=== PATIENT | female | born 1995 | race Caucasian/White ===

== ENCOUNTER 2020-08-30 16:42 | Emergency (ER) | payer BC ==
--- NOTE | 2020-08-30 19:29 | ED Physician Documentation ---
History of Present Illness - Stated complaint Stated Complaint: COVID EXPOSURE - Chief complaint Chief Complaint: General - Additonal information Additional information: 24-year-old female presents for COVID-19 screening. She reports that she lives alone with her mother. Unfortunately her mother has been in close contact with COVID-19 positive individuals from the [facility]. Patient denies cough cold congestion fever sore throat, runny nose or loss of taste or smell Review of Systems Constitutional: reports: Reviewed and negative Eyes: reports: Reviewed and negative Ears: reports: Reviewed and negative Nose: reports: Reviewed and negative Cardiac: reports: Reviewed and negative GI: reports: Reviewed and negative : reports: Reviewed and negative Skin: reports: Reviewed and negative Musculoskeletal: reports: Reviewed and negative Neurologic: reports: Reviewed and negative Psychiatric: reports: Reviewed and negative PD PAST MEDICAL HISTORY - Past Medical History Past Medical History: Yes Respiratory: None Endocrine/Autoimmune: None HEENT: None Psych: Anxiety Musculoskeletal: None - Past Surgical History Past Surgical History: Yes General: EGD HEENT: Tonsil/Adenoidectomy - Present Medications Home Medications: Ambulatory Orders Medication Instructions Recorded Confirmed Esomeprazole Magnesium [Nexium] 20 mg PO 06/08/13 06/08/13 atenoloL [Atenolol] 25 mg PO BID 06/08/13 06/08/13 cephALEXin [Keflex] 500 mg PO Q6H 10/27/13 10/27/13 Metoclopramide [Reglan] 10 mg PO Q6H PRN #20 tablet 10/28/13 - Allergies Allergies/Adverse Reactions: Allergies Allergy/AdvReac Type Severity Reaction Status Date / Time Sulfa (Sulfonamide Allergy Severe Rash Verified 06/08/13 09:06 Antibiotics) azithromycin [From Zithromax] AdvReac Severe prolonged Verified 10/27/13 20:24 QT ciprofloxacin [From Cipro] AdvReac Severe prolonged Verified 10/27/13 20:20 QT ciprofloxacin HCl * AdvReac Severe prolonged Verified 10/27/13 20:20 [From Cipro] QT desipramine AdvReac Severe prolonged Verified 10/27/13 20:20 QT diphenhydramine HCl * AdvReac Severe prolonged Verified 10/27/13 20:20 [From Benadryl] QT droperidol [Droperidol] AdvReac Severe prolonged Verified 10/27/13 20:19 QT erythromycin lactobionate * AdvReac Severe prolonged Verified 10/27/13 20:24 [From Erythrocin] QT levofloxacin AdvReac Severe prolonged Verified 10/27/13 20:24 QT prochlorperazine edisylate * AdvReac Severe prolonged Verified 10/27/13 20:25 [From Compazine] QT prochlorperazine maleate * AdvReac Severe prolonged Verified 10/27/13 20:25 [From Compazine] QT sertraline AdvReac Severe prolonged Verified 10/27/13 20:19 QT - Social History Does the pt smoke?: No Smoking Status: Never smoker Does the pt drink ETOH?: Yes - Immunizations Immunizations are current?: Yes PD ED PE NORMAL - General General: Alert and oriented X 3, No acute distress - HEENT HEENT: PERRL - Neck Neck: Supple, no meningeal sign - Cardiac Cardiac: RRR, No murmur - Respiratory Respiratory: Clear bilaterally - Abdomen Abdomen: Normal bowel sounds, Soft, Non tender, Non distended - Derm Derm: Warm and dry - Extremities Extremities: No deformity Results - Vitals Vitals: Vital Signs - 24 hr 08/30/20 17:58 Temperature 36.3 C L Heart Rate 88 Respiratory 20 Rate Blood Pressure 110/88 H O2 Saturation 99 Oxygen O2 Source Room air PD MEDICAL DECISION MAKING - ED course Complexity details: reviewed results, d/w patient, d/w family ED course: Asymptomatic 24-year-old female presents for COVID-19 screening as her mom was recently in close contact with those who have become COVID-19 positive. Patient advised that she must remain in quarantine until her results are known Departure - Departure Disposition: 01 Home, Self Care Clinical Impression: Encounter for screening laboratory testing for COVID-19 virus Condition: Stable Record reviewed to determine appropriate education?: Yes Comments: Nicole it can take 48 to 72 hours before we have your COVID-19 results. You must remain in quarantine until they are available. We will only notify you if the result is positive. However you may view the results on the [employer]
[2020-08-30 19:41] VITALS: BP 114/72
== END 2020-08-30 19:41 | disposition home or self-care (01) ==
LOC: ED 16:42
DX: Z20.828 Contact with and (suspected) exposure to other viral communicable diseases (principal)
CPT/HCPCS: 99282; 99283

== ENCOUNTER 2021-08-12 14:50 | Emergency (ER) | payer BC, MEDICAID ==
[2021-08-12 15:05] VITALS: BP 106/66
--- NOTE | 2021-08-12 15:13 | ED Physician Documentation ---
History of Present Illness - Stated complaint Stated Complaint: ABD INJURY, +PREG - Chief complaint Chief Complaint: Abd Pain - History obtained from History obtained from: Patient - Additonal information Additional information: Pt is a generally healthy 25 yo F high risk due to prolonged QT syndrome who presents w/ abdominal pain and cramping after she was carrying a large rack of dishes and bumped forcefully into the counter against her abdomen. She hasn't had any vaginal bleeding and continues to feel good movement but is having some abd cramping which is unusual for her. Cramping is in the lower abdomen. No other injuries, injury was accidental. Review of Systems Ten Systems: 10 systems reviewed and negative Constitutional: reports: Reviewed and negative Cardiac: reports: Reviewed and negative Respiratory: reports: Reviewed and negative GI: reports: Abdominal Pain, Hematemesis. denies: Abdominal Swelling, Nausea, Vomiting, Constipation, Diarrhea : reports: Now EGA (19 w today). denies: Dysuria, Frequency, Hesitancy, Hematuria, Vaginal bleeding Skin: reports: Reviewed and negative Musculoskeletal: reports: Reviewed and negative Neurologic: reports: Reviewed and negative PD PAST MEDICAL HISTORY - Past Medical History Respiratory: None Endocrine/Autoimmune: None HEENT: None Psych: Anxiety Musculoskeletal: None - Past Surgical History Past Surgical History: Yes General: EGD HEENT: Tonsil/Adenoidectomy - Present Medications Home Medications: Ambulatory Orders Medication Instructions Recorded Confirmed Lisdexamfetamine Dimesylate 30 mg ORAL DAILY 08/12/21 08/12/21 [Vyvanse] No122/Iron/Folic Acid 1 each PO DAILY 08/12/21 08/12/21 [ Multi Tablet] nadoloL [Corgard] 20 mg ORAL BID 08/12/21 08/12/21 - Allergies Allergies/Adverse Reactions: Allergies Allergy/AdvReac Type Severity Reaction Status Date / Time Sulfa (Sulfonamide Allergy Severe Rash Verified 08/12/21 15:00 Antibiotics) azithromycin [From Zithromax] AdvReac Severe prolonged Verified 08/12/21 15:00 QT ciprofloxacin [From Cipro] AdvReac Severe prolonged Verified 08/12/21 15:00 QT ciprofloxacin HCl * AdvReac Severe prolonged Verified 08/12/21 15:00 [From Cipro] QT desipramine AdvReac Severe prolonged Verified 08/12/21 15:00 QT diphenhydramine HCl * AdvReac Severe prolonged Verified 08/12/21 15:00 [From Benadryl] QT droperidol [Droperidol] AdvReac Severe prolonged Verified 08/12/21 15:00 QT erythromycin lactobionate * AdvReac Severe prolonged Verified 08/12/21 15:00 [From Erythrocin] QT levofloxacin AdvReac Severe prolonged Verified 08/12/21 15:00 QT prochlorperazine edisylate * AdvReac Severe prolonged Verified 08/12/21 15:00 [From Compazine] QT prochlorperazine maleate * AdvReac Severe prolonged Verified 08/12/21 15:00 [From Compazine] QT sertraline AdvReac Severe prolonged Verified 08/12/21 15:00 QT - Social History Does the pt smoke?: No Smoking Status: Never smoker Does the pt drink ETOH?: Yes - Immunizations Immunizations are current?: Yes PD ED PE NORMAL - Vitals Vital signs reviewed: Yes - General General: Alert and oriented X 3, No acute distress, Well developed/nourished - HEENT HEENT: Atraumatic, Moist mucous membranes - Cardiac Cardiac: RRR, No murmur - Respiratory Respiratory: No respiratory distress, Clear bilaterally - Abdomen Abdomen: Normal bowel sounds, Soft, Non tender, Non distended, Other (gravid abd at umbilicus) - Derm Derm: Normal color, Warm and dry, No rash - Neuro Neuro: Alert and oriented X 3 Eye Opening: Spontaneous Motor: Obeys Commands Verbal: Oriented GCS Score: 15 - Psych Psych: Normal mood, Normal affect Results - Vitals Vitals: Vital Signs - 24 hr 08/12/21 15:02 Temperature 36.6 C Heart Rate 62 Respiratory 18 Rate Blood Pressure 106/66 O2 Saturation 98 Oxygen O2 Source Room air PD MEDICAL DECISION MAKING - ED course Complexity details: reviewed results, re-evaluated patient, d/w patient ED course: Pt presented after abdominal trauma as noted above. She had some persistent cramping so we did obtain an US and both baby and placenta look good and her physical exam is reassuring. She had no vaginal bleeding. Provided reassurance, supportive measures reviewed. Pt will follow up via phone w/ her high risk preg ob. I reviewed return precautions in detail including vaginal bleeding, increased abd pain, decreased movement, lof, or other new concerns. Departure - Departure Disposition: 01 Home, Self Care Clinical Impression: Abdominal pain Condition: Good Comments: You presented with some abdominal cramping after an abdominal trauma. We did an ultrasound and baby and your placenta looked very good. There are no acute findings. You likely have some cramping from the trauma but this should dissipate in the next 1 to 2 days. You can take Tylenol safely. If you develop any vaginal bleeding, increased cramping, pain when you pee or other new concer ns return to the ER or follow-up with your OB provider.
--- NOTE | 2021-08-12 16:37 | Ultrasound Report ---
PROCEDURE: OB Limited INDICATIONS: ABD TRAUMA, 19W PREG. OUTSIDE/PRIOR DATING DATA: Last menstrual period (LMP): Unknown. LMP-based estimated date of delivery (BOO): Unknown. First dating scan (date and location): Not available. Estimated date of delivery (BOO) from first dating scan: Given by the patient as 01/09/2022. The below data below was generated using the dating given by the patient as 01/09/2022 TECHNIQUE: Real-time scanning was performed of the fetus, with image documentation. COMPARISON: None available FINDINGS: A single live intrauterine gestation is present. Presentation: Breech Placenta: Placental position is anterior, without previa. Amniotic fluid index: 10.9 cm, within normal limits for gestational age. heart rate: 124 beats per minutes. Maternal cervical canal: 6.5 cm long; normal length is 2.5 cm or more. IMPRESSION: Single live intrauterine . No acute abnormality is seen. No focal placental abnormality is seen. Reviewed by: Lyle Sánchez MD on 08/12/2021 3:35 PM CARRI Approved by: Lyle Sánchez MD on 08/12/2021 3:35 PM CARRI Station ID: [id number]
== END 2021-08-12 15:59 | disposition home or self-care (01) ==
LOC: ED 14:50
DX: O99.891 Other specified diseases and conditions complicating pregnancy (principal); R10.9 Unspecified abdominal pain; O09.892 Supervision of other high risk pregnancies, second trimester; Z3A.19 19 weeks gestation of pregnancy
CPT/HCPCS: 99282; 99284

== ENCOUNTER 2021-08-21 14:22 | Emergency (ER) | payer MEDICAID ==
[2021-08-21 14:31] VITALS: BP 113/69
[2021-08-21] MEDS ORDERED: BUFFERED LIDOCAINE 10 ML SYRINGE SUBQ STA (14:39)
--- NOTE | 2021-08-21 14:50 | ED Physician Documentation ---
PD HPI UPPER EXT INJURY - Stated complaint Stated Complaint: splinter under finger nail - Chief complaint Chief Complaint: Wound - History obtained from History obtained from: Patient - History of Present Illness Location: Right, Finger (ring) Type of injury: Foreign body Where injury occurred: Home Timing - onset: Yesterday Timing - duration: Days (1) Timing - details: Gradual onset Improved by: Rest Worsened by: Moving, Palpating Associated symptoms: No: Weakness, Numbness, Tingling, Swelling Recently seen: Not recently seen Review of Systems Constitutional: denies: Fever : reports: Now EGA (20+ weeks) PD PAST MEDICAL HISTORY - Past Medical History Respiratory: None Endocrine/Autoimmune: None HEENT: None Psych: Anxiety Musculoskeletal: None - Past Surgical History Past Surgical History: Yes General: EGD HEENT: Tonsil/Adenoidectomy - Present Medications Home Medications: Ambulatory Orders Medication Instructions Recorded Confirmed Lisdexamfetamine Dimesylate 30 mg ORAL DAILY 08/12/21 08/12/21 [Vyvanse] No122/Iron/Folic Acid 1 each PO DAILY 08/12/21 08/12/21 [ Multi Tablet] nadoloL [Corgard] 20 mg ORAL BID 08/12/21 08/12/21 cephALEXin [Keflex] 500 mg PO Q6H #28 cap 08/21/21 - Allergies Allergies/Adverse Reactions: Allergies Allergy/AdvReac Type Severity Reaction Status Date / Time Sulfa (Sulfonamide Allergy Severe Rash Verified 08/21/21 14:30 Antibiotics) azithromycin [From Zithromax] AdvReac Severe prolonged Verified 08/21/21 14:30 QT ciprofloxacin [From Cipro] AdvReac Severe prolonged Verified 08/21/21 14:30 QT ciprofloxacin HCl * AdvReac Severe prolonged Verified 08/21/21 14:30 [From Cipro] QT desipramine AdvReac Severe prolonged Verified 08/21/21 14:30 QT diphenhydramine HCl * AdvReac Severe prolonged Verified 08/21/21 14:30 [From Benadryl] QT droperidol [Droperidol] AdvReac Severe prolonged Verified 08/21/21 14:30 QT erythromycin lactobionate * AdvReac Severe prolonged Verified 08/21/21 14:30 [From Erythrocin] QT levofloxacin AdvReac Severe prolonged Verified 08/21/21 14:30 QT prochlorperazine edisylate * AdvReac Severe prolonged Verified 08/21/21 14:30 [From Compazine] QT prochlorperazine maleate * AdvReac Severe prolonged Verified 08/21/21 14:30 [From Compazine] QT sertraline AdvReac Severe prolonged Verified 08/21/21 14:30 QT - Social History Does the pt smoke?: No Smoking Status: Never smoker Does the pt drink ETOH?: Yes - Immunizations Immunizations are current?: Yes PD ED PE NORMAL - Vitals Vital signs reviewed: Yes - General General: Alert and oriented X 3, No acute distress - HEENT HEENT: Moist mucous membranes - Neck Neck: Supple, no meningeal sign - Cardiac Cardiac: RRR - Respiratory Respiratory: No respiratory distress, Clear bilaterally - Derm Derm: Warm and dry - Extremities Extremities: Other (R ring finger splinter under the nail.) - Neuro Neuro: Alert and oriented X 3 Results - Vitals Vitals: Vital Signs - 24 hr 08/21/21 14:26 Temperature 36.9 C Heart Rate 72 Respiratory 16 Rate Blood Pressure 113/69 O2 Saturation 97 Oxygen O2 Source Room air Procedures - General procedure General procedure: Right ring finger was anesthetized with a digital block and buffered 1% lidocaine. Tolerated well. Excellent anesthesia achieved. Forceps were then used to slide under the nail and remove the splinter. All fragments were removed. Neurovascular intact PD MEDICAL DECISION MAKING - ED course Complexity details: reviewed results, re-evaluated patient, considered differential, d/w patient ED course: Splinter was removed from under the nail. Encouraged warm water soaks at home. If she starts to develop any signs of infection, she will start the cephalexin. Tetanus up-to-date. Patient counseled regarding signs and symptoms for which I believe and urgent re-evaluation would be necessary. Patient with good understanding of and agreement to plan and is comfortable going home at this time This document was made in part using voice recognition software. While efforts are made to proofread this document, sound alike and grammatical errors may occur. Departure - Departure Disposition: 01 Home, Self Care Clinical Impression: Splinter Condition: Good Instructions: ED Foreign Body Soft Tissue Follow-Up: your,doctor as needed [Other] Prescriptions: cephALEXin [Keflex] 500 mg PO Q6H #28 cap Comments: Continue warm water soaks at home. This will help in the remaining splinter to work its way out. If you start to notice redness, swelling or increasing pain, start the antibiotics. Return if you worsen. The prescription was sent to [facility] Forms: Activity restrictions Discharge Date/Time: 08/21/21 15:32
== END 2021-08-21 15:32 | disposition home or self-care (01) ==
LOC: ED 14:22
DX: O99.891 Other specified diseases and conditions complicating pregnancy (principal); S60.454A Superficial foreign body of right ring finger, initial encounter; W45.8XXA Other foreign body or object entering through skin, initial encounter; Z3A.20 20 weeks gestation of pregnancy
CPT/HCPCS: 99282; 99283

== ENCOUNTER 2021-12-11 15:12 | Outpatient (CLI) | payer MEDICAID ==
[2021-12-11] MEDS ORDERED: METOCLOPRAMIDE 10 MG TABLET PO PRN (16:04)
[2021-12-11] MEDS ORDERED: ONDANSETRON ODT 4 MG TABLET TL PRN (16:04)
[2021-12-11] MEDS: ACETAMINOPHEN 500 MG TABLET PO PRN (16:45)
[2021-12-11 16:54] LABS: BILIRUBIN,URINE NEGATIVE (NEGATIVE); GLUCOSE, URINE (UA) NEGATIVE (NEGATIVE); KETONES,URINE (UA) NEGATIVE (NEGATIVE); LEUKOCYTE ESTERASE, URINE NEGATIVE (NEGATIVE); NITRITE,URINE NEGATIVE (NEGATIVE); OCCULT BLOOD,URINE NEGATIVE (NEGATIVE); PROTEIN,URINE NEGATIVE (NEGATIVE); UROBILINOGEN,URINE 0.2 (NORMAL) E.U./dL (NORMAL)
[2021-12-11 17:14] LABS: CLARITY,URINE CLEAR (CLEAR)
[2021-12-11 17:48] VITALS: BP 97/55
--- NOTE | 2021-12-11 18:20 | Ultrasound Report ---
PROCEDURE: OB Bio w/Non Stress INDICATIONS: non-reactive nst OUTSIDE/PRIOR DATING DATA: Last menstrual period (LMP): Unknown. First dating scan (date and location): Not available. Estimated date of delivery (BOO) from first dating scan: 01/09/2022. The below data below was generated using the clinically provided BOO of 01/09/2022 TECHNIQUE: Real-time scanning was performed of the fetus, with image documentation and biometric vernon surements. Biophysical profile was also obtained. COMPARISON: 08/12/2021. FINDINGS: General: A single living intrauterine gestation is present. Presentation: Vertex Placenta: Placental position is anterior, without previa. Amniotic fluid index: 15.9 cm, within normal limits for gestational age. heart rate: 114 beats per minute. Maternal cervical canal: Not imaged. Estimated gestational age from initial scan: 35 weeks 6 days Biophysical profile: Tone: 2 points. Movement: 2 points. Respiration: 2 points. Largest pocket of fluid: 2 points. 3.8 cm. Umbilical artery Doppler: Systolic/diastolic ratios of 2.3 at placenta, 2.7 in the mid vessel, and 2 .7 cm at the abdomen. A double nuchal cord was demonstrated. IMPRESSION: 1. Single living intrauterine demonstrated in vertex position. 2. Double nuchal cord demonstrated. 3. Biophysical profile score of 8/8. 4. Umbilical artery Doppler demonstrates preserved diastolic flow. Reviewed by: Santana Damon MD on 12/11/2021 6:18 PM PST Approved by: Santana Damon MD on 12/11/2021 6:18 PM PST Station ID: [id number]
--- NOTE | 2021-12-11 18:59 | PROVIDER PROGRESS NOTE ---
- HPI Current : Current EDU 01/09/22 Gestation 35 Weeks and 6 Days 1 Para 0 Vital Signs Temperature 98.6 F 12/11/21 15:30 Heart Rate 72 12/11/21 15:30 Respiratory Rate 20 12/11/21 15:30 Blood Pressure 113/72 12/11/21 15:30 O2 Saturation 100 12/11/21 15:30 Temperature 98.1 F 12/11/21 16:46 Heart Rate 60 12/11/21 16:20 Respiratory Rate 20 12/11/21 15:30 Blood Pressure 97/55 L 12/11/21 16:20 O2 Saturation 100 12/11/21 16:20 - Procedures NST Procedure: NST Procedure Start Date 12/11/21 Start Time 15:20 Stop Time 16:00 Vibroacoustic Stimulation Used Yes Patient States Movement Yes Service Date of procedure: 12/11/21 - Plan Plan: ID: Patient is a 25 yo at 35+4 wga with a complicated by long QT syndrome here for pelvic pressure/dysuria. HPI: Patient is followed by Dr. Cai at [facility] for a complicated by long QT syndrome managed with nadolol 20 mg po bid. conceived with letrozole. Dated by 6 weeks us. Patient reports feeling pelvis pressure and bladder discomfort. Home UA testing positive for leukocytes. No ctx/VB/LOF. Endorses movement. Also reports headache and lightheadedness. Normal blood pressures. No vision change or RUQ pain. Reports tracing frequently non-reactive and gets weekly BPPs as an alternative. 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 PE: VS: 98.1 60 97/55 20 100 GEN: NAD HEAD: NCAT EYES: No scleral icterus or conjunctival injection CV: RR RESP: normal effort ABD: S&NT/ND PSYCH: appropriate affect NEURO: alert and oriented, normal gait and coordination EXT: WWP SVE FT/long/high/posterior per RN exam EFM 110 10x10 accels no decels TOCO: quiet BPP 8/8 UA wnl vaginitis panel/GCCT/GBS pending A/P: Patient is a 25 yo at 35+4 wga with a complicated by long QT syndrome here for pelvic pressure/dysuria. PELVIC PAIN/DYSURIA: -Reassured regarding negative UA. Reviewed leukorrhea can result in positive UA and likely caused positive home result -No evidence of labor on TOCO with reassuring SVE DIZZINESS/HAMMOND: Normal blood pressures. Improving with oral hydration -Reviewed possibility of over beta-blockade given low BP and low HR now with symptoms -has bhupinder with MFM and will discuss with primary OB provider -Offered EKG, patient declines as does not feel this is consistent with cardiac symptoms FWB: BPP 8/8 -Has fu with MFM tomorrow Reviewed [place] of [place] at [facility]. Provided with info on [facility]. [place]ed [place]. Recommended induction of labor given distance from [facility] FU with primary OB/MFM tomorrow Discharged to home with warning signs Reviewed Medical Records and [facility] records in addition to obtaining hx from patient.
[2021-12-11 19:03] LABS: BACTERIAL VAGINOSIS DNA NEGATIVE (NEGATIVE); CANDIDA GLABRATA DNA NEGATIVE (NEGATIVE); CANDIDA GROUP DNA POSITIVE (NEGATIVE); CANDIDA KRUSEI DNA NEGATIVE (NEGATIVE); TRICHOMONAS VAGINALIS DNA NEGATIVE (NEGATIVE)
[2021-12-11 21:53] LABS: CHLAMYDIA TRACHOMATIS DNA NEGATIVE (NEGATIVE); NEISSERIA GONORRHOEAE DNA NEGATIVE (NEGATIVE); TRICHOMONAS VAGINALIS DNA NEGATIVE (NEGATIVE)
== END 2021-12-11 18:38 | disposition home or self-care (01) ==
LOC: WFO 15:12 → FBP 15:14 → WFO 18:38
PROVIDERS: ATTEND Obstetrics & Gynecology
DX: O99.891 Other specified diseases and conditions complicating pregnancy (principal); R10.2 Pelvic and perineal pain; R30.0 Dysuria; R42 Dizziness and giddiness; R51.9 Headache, unspecified; O99.413 Diseases of the circulatory system complicating pregnancy, third trimester; I45.81 Long QT syndrome; Z3A.35 35 weeks gestation of pregnancy; Z79.899 Other long term (current) drug therapy
CPT/HCPCS: 59025; 76818; 81003; 87081; 87481; 87491; 87591; 87661; 87797; 87801; 99215; A9270; 81001; 87086

== ENCOUNTER 2021-12-19 00:55 | Outpatient (CLI) | payer MEDICAID ==
[2021-12-19 02:00] VITALS: BP 91/52
--- NOTE | 2021-12-19 02:03 | PROVIDER PROGRESS NOTE ---
- HPI Chief Complaint: Other (Hypotension) Current : Current EDU 01/09/22 Gestation 37 Weeks and 0 Days 1 Para 0 Vital Signs Temperature 97.9 F 12/19/21 01:00 Heart Rate 55 L 12/19/21 01:00 Respiratory Rate 20 12/19/21 01:00 Blood Pressure 95/51 L 12/19/21 01:00 Temperature 97.9 F 12/19/21 01:59 Heart Rate 55 L 12/19/21 01:59 Respiratory Rate 20 12/19/21 01:59 Blood Pressure 91/52 L 12/19/21 01:59 O2 Saturation - Procedures OB Procedure Performed: NST NST Procedure: NST Procedure Start Date 12/19/21 Start Time 02:00 Stop Time 02:20 Vibroacoustic Stimulation Used No Patient States Movement Yes - Plan Plan: Patient is a 25-year-old G1, P0 at 37 weeks 0 days gestation presenting to triage for dizziness. Patient returned home today and was a little lightheaded so she took her blood pressure noticed it was low with a diastolic blood pres sure in the 30s. She usually runs low, but never this low. She then laid down and had an episode where "she washed the world turn ". She feels better since arrival and has been orally hydrating. She does suffer this from long QT syndrome. She has managed at [facility] and is managed with nadolol 20 mg p.o. twice daily. She has good movement, no leaking, no vaginal bleeding. She denies headache, right upper quadrant pain, changes in vision. care BOO 01/09/22 by 6-week ultrasound Flu 08/29/21 TDAP 11/21/21 s/p COVID vaccine x2 and booster O pos/ Ab neg/Rub imm/HIV neg NIPT 46 XX Heb C neg HepBsAg neg Tpal Ig/IM NR Past medical history Long QT syndrome, status post sympathetic denervation, on beta-blockers PCOS Depression/anxiety HSV Past surgical history Sympathetic denervation Tonsillectomy Family history Noncontributory Social history Denies tobacco, alcohol, drugs Lives in [place] with fianc Physical exam Blood pressure 90/61, heart rate 55, temperature 97.9, respirations 20 General: Acute, oriented, no acute distress Heart: Regular rate and rhythm Respiratory: No increased work of breathing Abdomen: gravid, soft, nontender heart rate: 115 beats per baseline, moderate variability, accelerations present, no decelerations. [place]: Quiescent Assessment and plan 25-year-old G1, P0 at 36 weeks 5 days gestation here for dizziness. 1. Dizziness -Currently asymptomatic. Orally hydrating. Was able to sit, stand, walk around room without issue. -Vital signs are comparable to previous visit and within her normal. heart rate tracing, while low, is comparable to her previous episode of monitoring last week. Initially 105-110 baseline, but increased to 115. -Encouraged to increase oral hydration. Also discussed further conversation about nadolol dosage if this becomes a more frequent issue. Should take it easy last two weeks of . Emphasized avoidance of falls. If she feels lightheaded, she should stay sitting or reclining, drink fluids, and rest until symptoms resolve. -Offered EKG, but patient declines as she feels well -Had BPP earlier today so repeat BPP is not likely beneficial. Good activity and reassuring NST. -Continue to follow-up with MFM. Has appointment next week. Planning for 39- week induction.
== END 2021-12-19 02:30 | disposition home or self-care (01) ==
LOC: WFO 00:55 → FBP 00:56 → WFO 02:30
PROVIDERS: ATTEND Obstetrics & Gynecology
DX: O99.891 Other specified diseases and conditions complicating pregnancy (principal); R42 Dizziness and giddiness; O99.413 Diseases of the circulatory system complicating pregnancy, third trimester; I45.81 Long QT syndrome; Z79.899 Other long term (current) drug therapy; Z3A.36 36 weeks gestation of pregnancy
CPT/HCPCS: 59025; 99215